=== PATIENT | female | born 1985 | race Caucasian/White ===

== ENCOUNTER 2017-04-03 19:38 | Emergency (ER) | payer OTHER ==
[2017-04-03] MEDS ORDERED: methylPREDNISolone SOD SUCC 125 MG/2 ML VIAL ONE (19:52)
[2017-04-03] MEDS ORDERED: FAMOTIDINE 20 MG/2 ML SDV ONE (19:53)
[2017-04-03] MEDS ORDERED: NS 1,000 ML IV ONE (19:55)
[2017-04-03] MEDS ORDERED: FAMOTIDINE 20 MG/2 ML SDV IVP ONE (19:56)
[2017-04-03] MEDS ORDERED: methylPREDNISolone SOD SUCC 125 MG/2 ML VIAL IVP ONE (19:56)
--- NOTE | 2017-04-03 19:56 | EDPHY ---
H & P Time Seen by Provider: 04/03/17 19:44 HPI/ROS: CHIEF COMPLAINT: Allergic reaction HISTORY OF PRESENT ILLNESS: Patient is a 31-year-old female with a known peanut allergy. She did med training salad that had peanuts in it. This occurred approximately 1 and 0.5 hr ago. She began to have an itchy throat. Because of this she took Benadryl. 30 min after that she began to developed diffuse rash and hives. Patient states she was concerned that her allergy was to the peanuts. She was also concerned that she may have an allergy to Benadryl. She has not taken Benadryl previously. Her mother has an allergy to Benadryl. She normally takes hydroxyzine for her allergic reactions. The patient denies any shortness of breath. No wheezing. No throat or tongue swelling. REVIEW OF SYSTEMS: My complete review of systems is negative except as mentioned in the HPI. Past Medical/Surgical History: Allergic reactions peanuts Past surgical history: Negative Smoking Status: Never smoked Physical Exam: Vitals noted GENERAL: No acute distress, alert. HEENT: Eyes normal to inspection, normal pharynx, uvula midline, no swelling no signs of dehydration. NECK: [No thyromegaly, no lymphadenopathy, supple. No stridor RESPIRATORY: Clear to auscultation bilaterally, no rales, rhonchi or wheezing. CVS: Regular rate and rhythm, no rubs, murmurs, or gallops. ABDOMEN: Soft, nontender, nondistended, no organomegaly. BACK: Normal to inspection, no CVA tenderness. SKIN: Diffuse hives, warm, dry. No pallor. EXTREMITIES: No pedal edema, no calf tenderness, no Homans sign or cords, no joint swelling. NEURO/PSYCH: Alert and oriented, normal mood and affect, normal motor sensory exam. No obvious cranial nerve deficit. Constitutional: Initial Vital Signs Temperature (C) 36.6 C 04/03/17 19:39 Heart Rate 79 04/03/17 19:39 Respiratory Rate 20 04/03/17 19:39 Blood Pressure 124/82 H 04/03/17 19:39 O2 Sat (%) 100 04/03/17 19:39 O2 Delivery Mode Room Air Allergies/Adverse Reactions: erythromycin base Allergy (Verified 04/03/17 19:54) peanut Allergy (Verified 04/03/17 19:54) Penicillins Allergy (Verified 04/03/17 19:54) Sulfa (Sulfonamide Antibiotics) Allergy (Verified 04/03/17 19:54) Home Medications: Medication Instructions Recorded Epipen 0.3 MG 04/03/17 Famotidine [Pepcid 20 MG (*)] 20 mg PO BID #6 tab 04/03/17 Hydroxyzine HCl 04/03/17 predniSONE 20 mg PO DAILY 4 Days tab 04/03/17 Medical Decision Making ED Course/Re-evaluation: In the emergency department I discussed possible etiologies with the patient. I answered all her questions. IV was placed. Patient given Solu-Medrol 125 mg IV. She is given Pepcid 20 mg IV. Patient states she may have an allergy to Benadryl. 840: Patient feels much better. Her rash is improved. No shortness of breath. No swelling in her mouth or tongue. Patient has no signs of respiratory distress. Clear to auscultation bilaterally. No wheezing. No stridor. 855: Patient is feeling better. She again has improving exam. Patient was given warnings prior to leaving. She will return with worsening symptoms. She will take her entire course of steroids as prescribed. She will continue to take Pepcid for the next 2 days. Differential Diagnosis: My differential includes but is not limited to allergic reaction, anaphylaxis, C1 esterase deficiency, - Data Points Medications Given: Discontinued Medications Famotidine (Pepcid) 20 mg IVP EDNOW ONE Stop: 04/03/17 19:57 Last Admin: 04/03/17 19:57 Dose: 20 mg Sodium Chloride (Ns) 1,000 mls @ 0 mls/hr IV EDNOW ONE; Wide Open PRN Reason: Protocol Stop: 04/03/17 19:56 Last Admin: 04/03/17 19:57 Dose: 1,000 mls Methylprednisolone Sodium Succinate (Solu-Medrol) 125 mg IVP EDNOW ONE Stop: 04/03/17 19:57 Last Admin: 04/03/17 19:57 Dose: 125 mg Departure - Departure Disposition: Home, Routine, Self-Care Clinical Impression: Allergic reaction Qualifiers: Encounter type: initial encounter Qualified Code(s): T78.40XA - Allergy, unspecified, initial encounter Condition: Good Instructions: Peanut Allergy (ED) Additional Instructions: Return with increasing shortness of breath, wheezing, vomiting, worsening rash or any other concerns. Take your entire course of prednisone and Pepcid. Referrals: David Davis MD [Medical Doctor] - 5-7 days, if not improved Prescriptions: Famotidine [Pepcid 20 MG (*)] 20 mg PO BID #6 tab predniSONE 20 mg PO DAILY 4 Days tab
[2017-04-03 21:08] VITALS: BP 111/76; PULSE 66; RESP 15; TEMP 98.4; O2SAT 100
== END 2017-04-03 21:05 | disposition home or self-care (01) ==
DX: T78.1XXA Other adverse food reactions, not elsewhere classified, initial encounter (principal); E86.9 Volume depletion, unspecified; Z91.010 Allergy to peanuts
CPT/HCPCS: 96374; J2930